=== PATIENT | male | born 1965 | race African-American/Black ===

== ENCOUNTER 2018-08-19 18:56 | Emergency (ER) | payer OTHER ==
[~2018-08-19] VITALS: Ht 172.7 cm; Wt 79.4 kg
--- NOTE | 2018-08-19 19:09 | NUR ---
PT BIBSELF C/C FEELING DEPRESSED LAST 5 DAYS. PT STATES "TOOK UNKNOWN AMOUNT OF PILLS A FEW HOURS AGO AND VOMITTED ORANGE". PT C/O DIZZINESS. PT AOX4. NAD NOTED. RESP EVEN AND UNLABORED. PT ON MONITOR IN BED 11. WILL CONTINUE TO MONITOR.
--- NOTE | 2018-08-19 19:15 | NUR ---
URINE COLLECTED AND SENT TO LAB
--- NOTE | 2018-08-19 19:18 | NUR ---
PHLEB AT BEDSIDE FOR BLOOD DRAW
[2018-08-19 19:24] LABS: BASOPHILS # (AUTO) 0.1 /CMM (0.0-0.2); BASOPHILS % (AUTO) 0.9 % (0.0-2.0); EOSINOPHILS % (AUTO) 1.6 % (0.0-6.0); HEMATOCRIT 41 % (39-51); HEMOGLOBIN 13.6 g/dL (13.5-17.5); LYMPHOCYTES # (AUTO) 2.5 /CMM (0.8-4.8); MEAN CORPUSCULAR HGB CONC 33 g/dl (31.0-36.0); MEAN CORPUSCULAR VOLUME 86 fL (80-96); MONOCYTES # (AUTO) 0.9 /CMM (0.1-1.30); MONOCYTES % (AUTO) 11.1 % (2.0-12.0); NEUTROPHILS # (AUTO) 4.2 /CMM (1.8-8.9); NEUTROPHILS % (AUTO) 54.4 % (43.0-81.0); PLATELET COUNT (AUTO) 309 /CMM (150-450); RED BLOOD CELL COUNT(AUTO) 4.78 MIL/uL (4.5-6.0); WHITE BLOOD COUNT (AUTO) 7.8 K/uL (4.3-11.0)
[2018-08-19 19:26] LABS: APPEARANCE,URINE Clear (CLEAR); BILIRUBIN,URINE Negative (NEGATIVE); BLOOD, URINE Trace-intact Ery/uL (NEGATIVE); COLOR,URINE Yellow (YELLOW); KETONES,URINE Trace (NEGATIVE); LEUKOCYTE ESTERASE ,URINE Negative (NEGATIVE); NITRITE, URINE Negative (NEGATIVE); PROTEIN,URINE Negative (NEGATIVE); UGLUCOSE Negative (NEGATIVE); UROBILINOGEN,URINE 0.2 EU/dL (0.2)
[2018-08-19] MEDS ORDERED: ONDANSETRON 4 MG TAB.RAPDIS SL ONE (19:30)
[2018-08-19] MEDS ORDERED: QUETIAPINE FUMARATE 25 MG TABLET PO ONE (19:30)
[2018-08-19 19:35] LABS: CALCIUM, SERUM 9.1 mg/dL (8.5-10.1); CARBON DIOXIDE 28 mmol/L (21-32); CHLORIDE 105 mmol/L (98-107); CREATININE 0.9 mg/dL (0.6-1.3); GLUCOSE 120 mg/dL (74-106); POTASSIUM 4.1 mmol/L (3.5-5.1); SODIUM SERUM 140 mmol/L (136-145); UREA NITROGEN, BLOOD 26 mg/dL (7-18)
[2018-08-19] MEDS ORDERED: QUETIAPINE FUMARATE 25 MG TABLET ONE (19:36)
[2018-08-19] MEDS ORDERED: ONDANSETRON 4 MG TAB.RAPDIS ONE (19:37)
[2018-08-19 19:39] LABS: BACTERIA,URINE Rare /HPF (None Seen); SQUAMOUS EPITHELIAL CELL,UR Few /HPF (None Seen); WBC,URINE NONE SEEN /HPF (0-3)
[2018-08-19 19:40] LABS: ALANINE AMINOTRANSFERASE 52 U/L (12-78); ALBUMIN 3.5 g/dL (3.4-5.0); ALCOHOL, BLOOD < 3 mg/dL (0-0); ALKALINE PHOSPHATASE 78 U/L (46-116); ASPARTATE AMINOTRANSFERASE 47 U/L (15-37); BILIRUBIN,DIRECT 0.1 mg/dL (0.0-0.2); BILIRUBIN,TOTAL 0.2 mg/dL (0.2-1.0); TOTAL PROTEIN, SERUM 6.9 g/dL (6.4-8.2)
[2018-08-19 19:41] LABS: ACETAMINOPHEN < 2 ug/ml (10-30); SALICYLATE 1.1 mg/dL (2.8-20.0)
--- NOTE | 2018-08-19 21:09 | NUR ---
Patient is resting comfortably in bed with eyes closed. Easily aroused. VSS
[2018-08-19 21:44] VITALS: BP 99/45
--- NOTE | 2018-08-19 22:18 | NUR ---
SO ARVIN EASTMAN [phone] EXT [id number]
--- NOTE | 2018-08-19 22:27 | NUR ---
report given to brian from [facility]. eta tbd
--- NOTE | 2018-08-19 22:29 | NUR ---
[facility] TRANSPORT TO [facility] ETA 1014 TRIP #[id number]
--- NOTE | 2018-08-19 23:13 | NUR ---
PT LEFT VIA PRIVATE AMBULANCE, LEFT IN STABLE CONDITION, AMBULATORY WIT STEADY GAIT. PT IS TO BE TRANSPORTED TO [facility] FOR A VOLUNTARY ADMISSION.
== END 2018-08-19 23:16 ==
LOC: ER 18:58
DX: F32.9 Major depressive disorder, single episode, unspecified (principal); F19.10 Other psychoactive substance abuse, uncomplicated; F20.9 Schizophrenia, unspecified; R79.89 Other specified abnormal findings of blood chemistry; N40.0 Benign prostatic hyperplasia without lower urinary tract symptoms; F17.200 Nicotine dependence, unspecified, uncomplicated
CPT/HCPCS: 36415; 80048; 80076; 80305; 80307; 80329; 81001; 85025; 99285; A4606; G0480; Q0162; 81000-TC

== ENCOUNTER 2018-09-01 20:21 | Emergency (ER) | payer OTHER ==
[~2018-09-01] VITALS: Ht 172.7 cm; Wt 79.4 kg
--- NOTE | 2018-09-01 20:56 | NUR ---
YING C/O "HEARING VOICES", PATIENT STATES HE IS NOT TAKING HIS MEDS. PATIENT DENIES SI/HI. PT IS CALM AND COOPERATIVE, AMB, VSS, RR EVEN AND UNLABORED ON RA. NO ACUTE DISTRESS NOTED. SKIN INTACT. PT MADE COMFORTABLE, READY FOR EVAL.
--- NOTE | 2018-09-01 21:37 | NUR ---
Patient is resting comfortably in bed with eyes closed. Easily aroused. VSS
[2018-09-01 21:39] LABS: APPEARANCE,URINE Clear (CLEAR); BILIRUBIN,URINE Negative (NEGATIVE); BLOOD, URINE Negative Ery/uL (NEGATIVE); COLOR,URINE Yellow (YELLOW); KETONES,URINE Trace (NEGATIVE); LEUKOCYTE ESTERASE ,URINE Negative (NEGATIVE); NITRITE, URINE Negative (NEGATIVE); PROTEIN,URINE Negative (NEGATIVE); UGLUCOSE Negative (NEGATIVE)
[2018-09-01] MEDS ORDERED: QUETIAPINE FUMARATE 25 MG TABLET ONE ×2 (21:43→21:49)
[2018-09-01 21:46] LABS: BASOPHILS # (AUTO) 0.1 /CMM (0.0-0.2); EOSINOPHILS % (AUTO) 2.4 % (0.0-6.0); HEMATOCRIT 38 % (39-51); HEMOGLOBIN 12.5 g/dL (13.5-17.5); LYMPHOCYTES # (AUTO) 2.8 /CMM (0.8-4.8); LYMPHOCYTES % (AUTO) 39.3 % (20.0-44.0); MEAN CORPUSCULAR HGB CONC 33 g/dl (31.0-36.0); MEAN CORPUSCULAR VOLUME 85 fL (80-96); MONOCYTES # (AUTO) 0.8 /CMM (0.1-1.30); NEUTROPHILS # (AUTO) 3.3 /CMM (1.8-8.9); NEUTROPHILS % (AUTO) 46.3 % (43.0-81.0); PLATELET COUNT (AUTO) 236 /CMM (150-450); RED BLOOD CELL COUNT(AUTO) 4.39 MIL/uL (4.5-6.0); WHITE BLOOD COUNT (AUTO) 7.1 K/uL (4.3-11.0)
[2018-09-01 21:51] LABS: BACTERIA,URINE Few /HPF (None Seen); RBC,URINE 0-2 /HPF (0-2); SQUAMOUS EPITHELIAL CELL,UR Few /HPF (None Seen); WBC,URINE 0-2 /HPF (0-3)
[2018-09-01 21:55] LABS: CALCIUM, SERUM 8.9 mg/dL (8.5-10.1); CARBON DIOXIDE 30 mmol/L (21-32); CHLORIDE 106 mmol/L (98-107); CREATININE 1.5 mg/dL (0.6-1.3); GLUCOSE 111 mg/dL (74-106); SODIUM SERUM 140 mmol/L (136-145); UREA NITROGEN, BLOOD 32 mg/dL (7-18)
[2018-09-01] MEDS ORDERED: QUETIAPINE FUMARATE 25 MG TABLET PO ONE (22:00)
[2018-09-01 22:01] LABS: ALANINE AMINOTRANSFERASE 32 U/L (12-78); ALBUMIN 3.3 g/dL (3.4-5.0); ALCOHOL, BLOOD < 3 mg/dL (0-0); ALKALINE PHOSPHATASE 74 U/L (46-116); ASPARTATE AMINOTRANSFERASE 40 U/L (15-37); BILIRUBIN,DIRECT 0.1 mg/dL (0.0-0.2); BILIRUBIN,TOTAL 0.5 mg/dL (0.2-1.0); TOTAL PROTEIN, SERUM 6.4 g/dL (6.4-8.2)
[2018-09-01 22:02] LABS: ACETAMINOPHEN < 2 ug/ml (10-30); SALICYLATE 0.2 mg/dL (2.8-20.0)
[2018-09-01] MEDS ORDERED: IV NS 0.9% 1,000 ML BAG IV ONE (22:30)
--- NOTE | 2018-09-01 22:41 | NUR ---
PT GIVEN JUICE AND PUDDING. OK PER CRAPS MANAGER
--- NOTE | 2018-09-01 22:59 | NUR ---
no psych adoption manager available until midnight. will call when available.
--- NOTE | 2018-09-01 23:08 | NUR ---
Patient is resting comfortably in bed with eyes closed. Easily aroused. VSS. HUNG SECOND LITER OF FLUID AND PROVIDED BLANKET FOR COMFORT.
--- NOTE | 2018-09-02 00:04 | NUR ---
ART, QUALITY LAB TECHNICIAN CALLED FOR PSYCH EVAL.
--- NOTE | 2018-09-02 00:49 | NUR ---
2ND CALL ART, VAPOR COATER CALLED FOR PSYCH EVAL.
--- NOTE | 2018-09-02 01:06 | NUR ---
Pt resting comfortably in bed w/ HOB elevated, resp even & unlabored w/ nad noted. Awaiting psych eval.
--- NOTE | 2018-09-02 01:14 | NUR ---
Art, COMPENSATION CONSULTANT at bedside for psych eval.
--- NOTE | 2018-09-02 02:08 | NUR ---
pt cleared fr psychiatric evaluation by BRITTANIE Mcleod. pt became agitated after told he was cleared for psychiatric evaluation and seen ambulating to ER chair and scooting himself out on chair, attempting to leave w/ chair and IVHL in place. pt advised he can not leave w/ hospital equipment and will be discharged fr ER. Pt advised to wait for discharge paperworks. pt refused to wait. pt offered list of homeless shelters, but pt refused to take paperwork and refused to sign for discharge papers. IVHL removed w/ arm band. All belongings returned to pt. pt ambulated w/ steady gait out of ER.
[2018-09-02 02:51] VITALS: BP 118/64
== END 2018-09-02 02:53 | disposition home or self-care (01) ==
LOC: ER 20:22
DX: R44.0 Auditory hallucinations (principal); F32.9 Major depressive disorder, single episode, unspecified; F14.10 Cocaine abuse, uncomplicated; R79.89 Other specified abnormal findings of blood chemistry; N40.0 Benign prostatic hyperplasia without lower urinary tract symptoms; F17.200 Nicotine dependence, unspecified, uncomplicated; Z59.0 Homelessness
CPT/HCPCS: 36415; 80048; 80076; 80305; 80307; 80329; 81001; 85025; 99284; A4606; G0480; J7030 ×2; 81000-TC

== ENCOUNTER 2018-09-09 21:19 | Emergency (ER) | payer OTHER ==
[~2018-09-09] VITALS: Ht 172.7 cm; Wt 79.4 kg
--- NOTE | 2018-09-09 22:39 | NUR ---
BIBSELF C/O HEARING VOICES AGAIN, +SI/-HI. PLAN TO "SHOOT MYSELF".; PT AAOX4, SUICIDE PRECAUTIONS INITIATED, PT ON MONITOR, VSS, NAD NOTED, PENDING MD BRANDT
[2018-09-09 23:26] LABS: APPEARANCE,URINE SL CLOUDY (CLEAR); BILIRUBIN,URINE NEGATIVE (NEGATIVE); BLOOD, URINE 1+ Ery/uL (NEGATIVE); COLOR,URINE YELLOW (YELLOW); KETONES,URINE NEGATIVE (NEGATIVE); LEUKOCYTE ESTERASE ,URINE NEGATIVE (NEGATIVE); NITRITE, URINE NEGATIVE (NEGATIVE); PROTEIN,URINE NEGATIVE (NEGATIVE); UGLUCOSE NEGATIVE (NEGATIVE)
[2018-09-09 23:37] LABS: BACTERIA,URINE None seen /HPF (None Seen); SQUAMOUS EPITHELIAL CELL,UR Few /HPF (None Seen); WBC,URINE 0-2 /HPF (0-3)
[2018-09-09 23:55] LABS: BASOPHILS % (AUTO) 0.5 % (0.0-2.0); EOSINOPHILS % (AUTO) 2.3 % (0.0-6.0); HEMATOCRIT 39 % (39-51); LYMPHOCYTES # (AUTO) 2.1 /CMM (0.8-4.8); LYMPHOCYTES % (AUTO) 28.2 % (20.0-44.0); MEAN CORPUSCULAR HGB CONC 33 g/dl (31.0-36.0); MEAN CORPUSCULAR VOLUME 85 fL (80-96); MONOCYTES # (AUTO) 0.8 /CMM (0.1-1.30); MONOCYTES % (AUTO) 11.5 % (2.0-12.0); NEUTROPHILS # (AUTO) 4.2 /CMM (1.8-8.9); NEUTROPHILS % (AUTO) 57.5 % (43.0-81.0); PLATELET COUNT (AUTO) 283 /CMM (150-450); RED BLOOD CELL COUNT(AUTO) 4.63 MIL/uL (4.5-6.0); WHITE BLOOD COUNT (AUTO) 7.4 K/uL (4.3-11.0)
[2018-09-10 00:09] LABS: CALCIUM, SERUM 8.7 mg/dL (8.5-10.1); CARBON DIOXIDE 30 mmol/L (21-32); CHLORIDE 107 mmol/L (98-107); GLUCOSE 102 mg/dL (74-106); POTASSIUM 4.3 mmol/L (3.5-5.1); SODIUM SERUM 144 mmol/L (136-145); UREA NITROGEN, BLOOD 21 mg/dL (7-18)
[2018-09-10 00:20] LABS: ALANINE AMINOTRANSFERASE 39 U/L (12-78); ALBUMIN 3.6 g/dL (3.4-5.0); ALCOHOL, BLOOD < 3 mg/dL (0-0); ALKALINE PHOSPHATASE 83 U/L (46-116); ASPARTATE AMINOTRANSFERASE 76 U/L (15-37); BILIRUBIN,DIRECT 0.1 mg/dL (0.0-0.2); BILIRUBIN,TOTAL 0.3 mg/dL (0.2-1.0); TOTAL PROTEIN, SERUM 6.5 g/dL (6.4-8.2)
[2018-09-10 00:22] LABS: ACETAMINOPHEN 0 ug/ml (10-30); SALICYLATE 1.4 mg/dL (2.8-20.0)
[2018-09-10 01:46] VITALS: BP 121/63
--- NOTE | 2018-09-10 03:26 | NUR ---
PT ACCEPTED TO [facility], ACCEPTED BY DR YOUNG. # FOR REPORT [phone]
--- NOTE | 2018-09-10 03:47 | NUR ---
[facility] CALLED FOR TRANSPORT. ETA 2027 TRIP#[id number]
--- NOTE | 2018-09-10 05:34 | NUR ---
[facility] AT BEDSIDE FOR TRANSPORT TO [facility] .
== END 2018-09-10 05:35 ==
LOC: ER 21:32
DX: R45.851 Suicidal ideations (principal); F19.10 Other psychoactive substance abuse, uncomplicated; F20.9 Schizophrenia, unspecified; F32.9 Major depressive disorder, single episode, unspecified; F17.200 Nicotine dependence, unspecified, uncomplicated; Z59.0 Homelessness
CPT/HCPCS: 36415; 80048-TC; 80076-TC; 80305; 81000-TC; 85025-TC; G0480

== ENCOUNTER 2018-09-19 09:08 | Emergency (ER) | payer OTHER ==
[~2018-09-19] VITALS: Ht 172.7 cm; Wt 77.1 kg
[2018-09-19 09:56] LABS: APPEARANCE,URINE Clear (CLEAR); BILIRUBIN,URINE Negative (NEGATIVE); BLOOD, URINE Small Ery/uL (NEGATIVE); COLOR,URINE Yellow (YELLOW); KETONES,URINE Negative (NEGATIVE); LEUKOCYTE ESTERASE ,URINE Negative (NEGATIVE); NITRITE, URINE Negative (NEGATIVE); PROTEIN,URINE Trace mg/dl (NEGATIVE); UGLUCOSE Negative (NEGATIVE); UROBILINOGEN,URINE 0.2 EU/dL (0.2)
[2018-09-19 09:58] LABS: BACTERIA,URINE Rare /HPF (None Seen); SQUAMOUS EPITHELIAL CELL,UR Rare /HPF (None Seen); WBC,URINE 0-2 /HPF (0-3)
[2018-09-19] MEDS ORDERED: LORAZEPAM 1 MG TABLET PO ONE (10:00)
--- NOTE | 2018-09-19 10:00 | NUR ---
Depression/Paranoia. "Seligman suicidal last night- shoot myself didnt work Gun didnt have any bullets". PT AAOX4, VSS. DENIES HI, CP, SOB, DIZZINESS, WEAKNESS, MORENO @ THIS TIME. PT CALM & COOPERATIVE, PT SEEN & EVAL'D BY DR. GUSMAN & WILL CONT TO MONITOR.
[2018-09-19 10:01] LABS: BASOPHILS # (AUTO) 0.1 /CMM (0.0-0.2); BASOPHILS % (AUTO) 0.7 % (0.0-2.0); EOSINOPHILS % (AUTO) 0.8 % (0.0-6.0); HEMATOCRIT 40 % (39-51); HEMOGLOBIN 13.1 g/dL (13.5-17.5); LYMPHOCYTES # (AUTO) 1.4 /CMM (0.8-4.8); LYMPHOCYTES % (AUTO) 11.3 % (20.0-44.0); MEAN CORPUSCULAR HGB CONC 33 g/dl (31.0-36.0); MEAN CORPUSCULAR VOLUME 85 fL (80-96); MONOCYTES # (AUTO) 1.1 /CMM (0.1-1.30); MONOCYTES % (AUTO) 8.8 % (2.0-12.0); NEUTROPHILS # (AUTO) 9.7 /CMM (1.8-8.9); NEUTROPHILS % (AUTO) 78.4 % (43.0-81.0); PLATELET COUNT (AUTO) 285 /CMM (150-450); RED BLOOD CELL COUNT(AUTO) 4.66 MIL/uL (4.5-6.0); WHITE BLOOD COUNT (AUTO) 12.3 K/uL (4.3-11.0)
[2018-09-19 10:13] LABS: CALCIUM, SERUM 9.2 mg/dL (8.5-10.1); CARBON DIOXIDE 27 mmol/L (21-32); CHLORIDE 103 mmol/L (98-107); CREATININE 0.9 mg/dL (0.6-1.3); GLUCOSE 124 mg/dL (74-106); SODIUM SERUM 137 mmol/L (136-145); UREA NITROGEN, BLOOD 15 mg/dL (7-18)
[2018-09-19 10:19] LABS: ALANINE AMINOTRANSFERASE 22 U/L (12-78); ALBUMIN 3.7 g/dL (3.4-5.0); ALCOHOL, BLOOD < 3 mg/dL (0-0); ALKALINE PHOSPHATASE 72 U/L (46-116); ASPARTATE AMINOTRANSFERASE 32 U/L (15-37); BILIRUBIN,DIRECT 0.2 mg/dL (0.0-0.2); BILIRUBIN,TOTAL 0.9 mg/dL (0.2-1.0)
[2018-09-19 10:20] LABS: ACETAMINOPHEN 0 ug/ml (10-30); SALICYLATE < 0.2 mg/dL (2.8-20.0)
[2018-09-19] MEDS ORDERED: LORAZEPAM 1 MG TABLET ONE (10:25)
--- NOTE | 2018-09-19 12:00 | NUR ---
Patient is resting comfortably in bed with eyes closed. Easily aroused. VSS
--- NOTE | 2018-09-19 12:05 | NUR ---
CALLED LINUX UNIX ADMINISTRATOR FOR EVAL - ART [employer]ITARY [employer]ICE OFFICER
--- NOTE | 2018-09-19 13:00 | NUR ---
ART, METEOROLOGY PROFESSOR @ BS FOR EVAL.
--- NOTE | 2018-09-19 15:00 | NUR ---
Patient is resting comfortably in bed with eyes closed. Easily aroused. VSS
--- NOTE | 2018-09-19 17:36 | NUR ---
SO ARVIN BRIDG[facility] WILL INFORM US OF ACCEPTENCE ONCE NURSE REPORT IS GIVEN - ACCEPTING IS DR. JAEGER - NUMBER FOR REPORT IS EXT. [phone]
--- NOTE | 2018-09-19 18:18 | NUR ---
REPORT GIVEN TO ALINA ESCALANTE @ [facility] FOR CONT OF CARE.
--- NOTE | 2018-09-19 18:53 | NUR ---
SET UP BLS RIG WITH [facility] TO [phone] - TRIP# [id number]
[2018-09-19 20:24] VITALS: BP 104/72
--- NOTE | 2018-09-19 20:24 | NUR ---
GAVE REPORT TO [facility] FOR TRANSFER DESTINY
== END 2018-09-19 20:25 ==
LOC: ER 09:15
DX: F28 Other psychotic disorder not due to a substance or known physiological condition (principal); R45.851 Suicidal ideations; F14.10 Cocaine abuse, uncomplicated; F32.9 Major depressive disorder, single episode, unspecified; F20.9 Schizophrenia, unspecified; F17.200 Nicotine dependence, unspecified, uncomplicated; Z59.0 Homelessness
CPT/HCPCS: 36415; 80048; 80076; 80305; 80307; 80329; 81001; 84484; 85025; 99285; A4606; G0480; 81000-TC